=== PATIENT | male | born 1955 | race Caucasian/White ===

== ENCOUNTER 2024-12-14 08:24 | Emergency (ER) | payer SELFPAY ==
[~2024-12-14] VITALS: Ht 165.1 cm; Wt 70.0 kg
[2024-12-14 08:32] VITALS: O2SAT 96
[2024-12-14 11:28] VITALS: BP 101/71; PULSE 82; RESP 16; TEMP 37.1; O2SAT 99
== END 2024-12-14 11:29 | disposition home or self-care (01) ==
LOC: ER 08:24
DX: F10.129 Alcohol abuse with intoxication, unspecified (principal); Y90.9 Presence of alcohol in blood, level not specified
CPT/HCPCS: 99283